=== PATIENT | male | born 1950 | race Caucasian/White ===

== ENCOUNTER 2017-05-22 07:10 | Day surgery (SDC) | payer MEDICARE, OTHER ==
[2017-05-21 14:00] LABS: BASOPHILS 0.3 % (0-2); EOSINOPHILS 1.6 % (0-7); HEMATOCRIT 44.4 % (42.0-54.0); HEMOGLOBIN 14.2 g/dL (13.5-17.5); IMMATURE GRANULOCYTES 0.1 % (0-5); MCH 27.9 pg (26.0-34.0); MCV 87.2 fL (80.0-100.0); MEAN PLATELET VOLUME 9.5 fL (7.4-10.4); MONOCYTES 8.9 % (2-11); NEUTROPHILS 66.1 % (40-80); PLATELET COUNT 194 10x3/uL (130-400); RBC 5.09 10x6/uL (4.20-6.10); RDW 14.4 % (11.5-14.5); WBC 7.3 10x3/uL (4.8-10.8)
[2017-05-21 14:06] LABS: APTT 33.2 SECONDS (22.8-39.4); INR 1.07 (0.85-1.17); PROTIME 13.7 SECONDS (11.6-15.0)
[~2017-05-22] VITALS: Ht 175.3 cm; Wt 88.5 kg
[~2017-05-22 07:10] MED LIST: AMBIEN10 MG PO; ARICEPT5 MG PO; BACTRIM 400-801 TAB PO; BENICAR20 MG PO; CELLCEPT500 MG PO; KLONOPIN0.5 MG PO; MS CONTIN30 MG PO; OXY IR30 MG PO; PRAVASTATIN SOD10 MG PO; TACROLIMUS ANHYD1 MG PO; ZOLOFT100 MG PO; [UNRECOGNIZED DRUG - OTHER] PO
[2017-05-22 08:57] VITALS: BP 118/77; Ht 175.3 cm; Wt 88.5 kg
[2017-05-22] MEDS ORDERED: DURICEF500 MG PO (12:21)
--- NOTE | 2017-05-22 12:25 | NUR ---
PT REC'D TO ROOM VIA STRETCHER, AWAKE AND ALERT. DRESSING TO RIGHT HAND C/D/I.
--- NOTE | 2017-05-22 12:40 | NUR ---
FULL LIQUID TRAY PROVIDED AND TOLERATED.
--- NOTE | 2017-05-22 13:00 | NUR ---
IV D/C'D CATH INTACT.
--- NOTE | 2017-05-22 13:30 | NUR ---
D/C INSTRUCTIONS EXPLAINED TO PT AND , INCLUDING WOUND CARE. VOICED UNDERSTANDING. PT STATES HE HAS PAIN RX AT HOME.
--- NOTE | 2017-05-22 13:35 | NUR ---
D/C'D HOME VIA W/C TO PRIVATE CAR.
--- NOTE | 2017-05-23 07:58 | OP ---
PATIENT NAME: REHANA SOTO MEDICAL RECORD: [id number] :46 LOCATION:[facility] ADMISSION DATE: SURGEON: PARAMJIT MORALES DO DATE OF OPERATION: 05/22/2017 PROCEDURE PERFORMED: Right middle and small finger trigger release or A1 john release. PREOPERATIVE DIAGNOSIS: Right middle and small finger trigger fingers. POSTOPERATIVE DIAGNOSIS: Right middle and small finger trigger fingers. INDICATIONS: Mr. Soto is a 67-year-old male who presented to my office with trigger fingers on both hands. He has had this for quite some time. He tried injections, which did not help. It did not improve them and then they did not get better, so he called the office and wanted him released. He was informed of the risks and benefits of the procedure. DESCRIPTION OF PROCEDURE: The patient was taken to the operative suite, given TIVA for anesthesia due to the fact that anytime he has general anesthesia he gets an ileus, so we decided to do under TIVA with local block. Once his right arm was prepped and draped in sterile fashion, a timeout was performed and everyone was in agreement with the correct side, site, and patient. He was given Ancef also preoperatively. Once this was done, 8 mL of 0.5% Marcaine were used to anesthetize just proximal to the incision site of the small finger and 10 mL were used just proximal to the incision site along the middle finger. This was done and allowed to set it for a couple minutes and then the hand was elevated and tourniquet was inflated to 250 mmHg. The incision was then commenced, first in the small finger. A 15 blade was used to cut the skin. Once this was done, a Ragnell was used to do blunt dissection down to the A1 john itself. This was cleared off with scissors to ensure there was just the A1 john and nothing else. The knife was then used to incise the very proximal part of the john and then scissors were used to release it the rest of the way. Once it was released, the tendon was pulled up through the skin to ensure that there was no triggering, it would glide smoothly and there was also no tenosynovitis there. Then, attention was then drawn to the middle finger. Incision was made in the distal skin crease in the palm and again an incision was made with a 15 blade and careful dissection was made down with Marcelluss, blunt dissection to the A1 john itself, and it was cleared off with scissors. Once we had good visualization of the john, a 15 blade was used to incise it and then the rest of it was finished distally with scissors. Once this was done, the tendon was pulled up through the incision site again and the middle finger and small finger were both moved and flexed to ensure there was no triggering. Once this was done, the tourniquet was let down at 12 minutes and pressure was held over the wounds and then each of the incision was closed with simple interrupted sutures of 5-0 nylon and then Adaptic, 4 x 4's, Kerlix, and Coban was lightly wrapped on the hand. The patient was awakened and taken to recovery in stable condition. TRANSINT:[id number] Voice Confirmation ID: [id number] DOCUMENT ID: [id number] OPERATIVE REPORT [id number] REHANA SOTO,PARAMJIT Mercado DO at [id number] CC: [id number] DICTATION DATE: 05/22/17 1226 PUBLIC HEALTH PROGRAM MANAGER: 05/22/[address] [facility] 05/22/17 [facility] [address] [place] [address]
== END 2017-05-22 13:35 | disposition home or self-care (01) ==
LOC: D.OPS 07:10 → D.PAN 11:15 → D.OPS 11:15
PROVIDERS: Anesthesiology
DX: M65.331 Trigger finger, right middle finger (principal); M65.351 Trigger finger, right little finger; Z01.812 Encounter for preprocedural laboratory examination